=== PATIENT | female | born 1985 | race Caucasian/White ===

== ENCOUNTER 2016-08-29 20:41 | Emergency (ER) | payer OTHER ==
[2016-08-29] MEDS ORDERED: Amoxicillin/Clavulanate TAB* 875 MG PO ONE (20:59)
--- NOTE | 2016-08-29 21:10 | UC ---
Throat Pain/Nasal Darnell HPI - HPI Summary HPI Summary: Patient has had two weeks of right sided sinus pressure, increased to left side and now has upper jaw pain, and post nasal drip - History of Current Complaint Chief Complaint: UCGeneralIllness Stated Complaint: SINUS SORE THROAT Time Seen by Provider: 08/29/16 20:55 Hx Obtained From: Patient Hx Last Menstrual Period: 08/28/16 Onset/Duration: Sudden Onset, Lasting Weeks Severity: Worse Since: - last week Pain Intensity: 7 Pain Scale Used: 0-10 Numeric Cough: None Associated Signs & Symptoms: Positive: Sinus Discomfort, Nasal Discharge - Epiglottits Risk Factors Epiglottis Risk Factors: Negative - Allergies/Home Medications Allergies/Adverse Reactions: Allergies Allergy/AdvReac Type Severity Reaction Status Date / Time Cefprozil [From Cefzil] Allergy Mild Hives Verified 08/29/16 20:50 Hepatitis B Virus Vaccine Allergy Mild Hives Verified 08/29/16 20:50 Home Medications: Home Medications Bcp 1 tab PO BEDTIME 08/29/16 [History Confirmed 08/29/16] Dextromethorphan-Guaifenesin [Mucinex Fast-Max Dm Max 20-400 mg/20Ml] 1 liq PO SEE INSTRUCTIONS PRN 08/29/16 [History Confirmed 08/29/16] PMH/Surg Hx/FS Hx/Imm Hx Previously Healthy: Yes Neurological History Of: Reports: Migraine - ONE EVERY 4 MONTH - Surgical History Surgical History: Yes Surgery Procedure, Year, and Place: 2012 C SECTION, [facility]. 2001 TONSILLECTOMY AND ADENOIDECTOMY, [facility]. 08/27/16 - Family History Known Family History: Positive: Hypertension - Social History Alcohol Use: Rare Substance Use Type: None Smoking Status (MU): Never Smoked Tobacco Have You Smoked in the Last Year: No - Immunization History Most Recent Influenza Vaccination: declined Most Recent Tetanus Shot: unk Most Recent Pneumonia Vaccination: none Review of Systems Constitutional: Fatigue Skin: Negative Eyes: Negative ENT: Sore Throat, Ear Ache, Nasal Discharge Respiratory: Negative Cardiovascular: Negative Gastrointestinal: Negative Genitourinary: Negative Motor: Negative Neurovascular: Negative Neurological: Headache Psychological: Negative All Other Systems Reviewed And Are Negative: Yes Physical Exam Triage Information Reviewed: Yes Appearance: Well-Nourished, Ill-Appearing, Pain Distress Vital Signs: Initial Vital Signs Temp 97.6 F 08/29/16 20:45 Pulse 97 08/29/16 20:45 Resp 16 08/29/16 20:45 BP 138/84 08/29/16 20:45 Pulse Ox 99 08/29/16 20:45 Vital Signs Reviewed: Yes Eye Exam: Normal Eyes: Positive: Conjunctiva Clear ENT Exam: Normal ENT: Positive: Pharyngeal erythema - with posterior exudate, Nasal congestion, Nasal drainage, TM bulging, TM red Dental Exam: Normal Neck exam: Normal Neck: Positive: Supple, Nontender, No Lymphadenopathy Respiratory Exam: Normal Respiratory: Positive: Chest non-tender, Lungs clear, Normal breath sounds Cardiovascular Exam: Normal Cardiovascular: Positive: RRR, No Murmur, Pulses Normal Abdominal Exam: Normal Abdomen Description: Positive: Nontender, No Organomegaly, Soft Bowel Sounds: Positive: Present Musculoskeletal Exam: Normal Musculoskeletal: Positive: Strength Intact, ROM Intact, No Edema Neurological Exam: Normal Neurological: Positive: Alert, Muscle Tone Normal Psychological Exam: Normal Skin Exam: Normal Throat Pain/Nasal Course/Dx - Course Course Of Treatment: hx obtained, exam performed, meds dispensed and prescribed for sinusitis - Differential Dx/Diagnosis Differential Diagnosis/HQI/PQRI: Influenza, Laryngitis, Otitis Media, Pharyngitis, Sinusitis, Tonsillitis, URI Provider Diagnoses: sinusitis Discharge - Discharge Plan Condition: Stable Disposition: HOME Prescriptions: Amoxicillin/Clavulanate TAB* [Augmentin TAB 875*] 875 mg PO BID #19 tab predniSONE TAB* [Deltasone TAB*] 40 mg PO DAILY #10 tab Patient Education Materials: Sinusitis (ED) Referrals: Tania Sutton NP [Primary Care Provider] - Additional Instructions: Take the medication as directed, Increase your fluid intake and get plenty of rest. tylenol or ibuprofen for pain and fever. Heat to the area may also relieve pain, Steam showers as well to promote clearing of the sinuses.
[2016-08-29 21:15] VITALS: BP 138/84
== END 2016-08-29 21:23 | disposition home or self-care (01) ==
LOC: UCCORT 20:41
DX: J32.9 Chronic sinusitis, unspecified (principal); Z88.1 Allergy status to other antibiotic agents; Z88.7 Allergy status to serum and vaccine
CPT/HCPCS: 99212; A9270-GY; G0463

== ENCOUNTER 2016-10-16 17:39 | Emergency (ER) | payer OTHER ==
[2016-10-16 17:57] VITALS: BP 131/82
[2016-10-16] MEDS ORDERED: Ibuprofen TAB* 600 MG PO ONE (17:59)
--- NOTE | 2016-10-16 18:16 | ED ---
HPI Febrile Illness - HPI Summary HPI Summary: 1 1/2 weeks of URI sx. Started with sinusitis Sx, then spread into chest. Positive sinus pressure/rhinorrhea. Dry cough. Positive sore throat. Chest hurts with cough. Has heard wheezing. 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: - at noon - Allergy/Home Medications Allergies/Adverse Reactions: Allergies Allergy/AdvReac Type Severity Reaction Status Date / Time Cefprozil [From Cefzil] Allergy Mild Hives Verified 10/16/16 17:49 Hepatitis B Virus Vaccine Allergy Mild Hives Verified 10/16/16 17:49 Home Medications: Home Medications Control Med 1 tab DAILY 10/16/16 [History] PMH/Surg Hx/FS Hx/Imm Hx Previously Healthy: Yes Sensory History: Denies: Hx Contacts or Glasses, Hx Hearing Aid Opthamlomology History: Denies: Hx Contacts or Glasses Neurological History: Reports: Hx Migraine - ONE EVERY 4 MONTH - Surgical History Surgery Procedure, Year, and Place: 2012 C SECTION, [facility]. 2001 [address]OMY AND [address]EN[address]Y, [facility] [place] Hx Anesthesia Reactions: No Infectious Disease History: No Infectious Disease History: Denies: Traveled Outside the [place] in Last 30 Days - Family History Known Family History: Positive: Hypertension - Social History Alcohol Use: Rare Substance Use Type: Reports: None Smoking Status (MU): Never Smoked Tobacco Have You Smoked in the Last Year: No Review of Systems Positive: Fever, Chills Eyes: Negative Positive: Nasal Discharge Positive: Chest Pain - with cough Positive: Shortness Of Breath - wheezing Gastrointestinal: Negative Genitourinary: Negative Musculoskeletal: Negative Skin: Negative Neurological: Negative Psychological: Normal All Other Systems Reviewed And Are Negative: Yes Physical Exam Triage Information Reviewed: Yes Vital Signs On Initial Exam: Initial Vitals Temp Pulse Resp BP Pulse Ox 101 F 136 18 131/82 99 10/16/16 17:50 10/16/16 17:50 10/16/16 17:50 10/16/16 17:50 10/16/16 17:50 Vital Signs Reviewed: Yes Appearance: Positive: No Pain Distress, Well-Nourished, Ill-Appearing - Mildly/ moderately ill appearing Skin: Positive: Warm, Skin Color Reflects Adequate Perfusion Eyes: Positive: Normal ENT: Positive: Pharynx normal, Nasal congestion, TMs normal. Negative: TM bulging, Tonsillar swelling, Tonsillar exudate Neck: Positive: Supple Respiratory/Lung Sounds: Positive: Wheezes Cardiovascular: Positive: Tachycardia Musculoskeletal: Positive: Normal Neurological: Positive: Normal Psychiatric: Positive: Normal Diagnostics - Vital Signs Vital Signs Temp Pulse Resp BP Pulse Ox 10/16/16 17:50 101 F 136 18 131/82 99 - Laboratory Lab Statement: Any lab studies that have been ordered have been reviewed, and results considered in the medical decision making process. Course/Dx - Course Assessment/Plan: Patient given ibuprofen in clinic. Rx augmentin/prednisone/ tylenol #3/albuterol. Discussed treatment with patient. She will f/u with pmd; go to ED if worse or not improved. Discharge home stable. - Diagnoses Provider Diagnoses: Sinusitis, Fever, Bronchitis, Bronchospasm Discharge - Discharge Plan Condition: Stable Disposition: HOME Prescriptions: Acetaminop/Codeine 30 MG TAB* [Tylenol/Codeine 30 MG TAB*] 1 tab PO Q6H PRN #20 tab MDD 4 PRN Reason: Cough Albuterol HFA INHALER* [Ventolin HFA Inhaler*] 2 puff INH Q4H PRN #1 mdi PRN Reason: Wheezing Amoxicillin/Clavulanate TAB* [Augmentin TAB 875*] 875 mg PO BID #20 tab predniSONE TAB* [Deltasone TAB*] 40 mg PO DAILY #8 tab Patient Education Materials: Fever in Adults (ED), Acute Bronchitis (ED), How to Use a Nebulizer (ED), Wheezing (ED), Sinusitis (ED) Additional Instructions: FOLLOW UP WITH YOUR DOCTOR. GO TO THE EMERGENCY DEPARTMENT FOR ANY WORSENING OF YOUR CONDITION; SHORTNESS OF BREATH, YOU FEEL ILL, YOU DO NOT IMPROVE OR QUESTIONS OR CONCERNS.
== END 2016-10-16 18:45 | disposition home or self-care (01) ==
LOC: UCCORT 17:39
DX: J32.9 Chronic sinusitis, unspecified (principal); J20.9 Acute bronchitis, unspecified; R50.9 Fever, unspecified; G43.909 Migraine, unspecified, not intractable, without status migrainosus; Z88.1 Allergy status to other antibiotic agents
CPT/HCPCS: 99212; A9270-GY; G0463

== ENCOUNTER 2018-02-05 09:53 | Emergency (ER) | payer OTHER ==
[2018-02-05] MEDS ORDERED: EPINEPHrine AMP 1 MG/ML IM ONE ×2 (10:16→10:41)
[2018-02-05] MEDS ORDERED: diPHENhydraMINE IV* 50 MG/ML 1 ml VIAL (BENADRYL) IM ONE (10:18)
[2018-02-05] MEDS ORDERED: methylPREDNISolone 125 MG* 2 ML VIAL IM ONE (10:18)
[2018-02-05] MEDS ORDERED: LoraTADine TAB(NF) 10 MG TAB (AUTOSUB to CETIRIZINE) PO ONE (10:24)
--- NOTE | 2018-02-05 10:27 | UC ---
Allergic Reaction HPI - HPI Summary HPI Summary: Pt presents with facial swelling, itching, and angio edema 5- 10 minute onset after being bit or stung by unknown insect. - History of Current Complaint Chief Complaint: UCAllergicReaction Stated Complaint: ALLERGIC REACTION Time Seen by Provider: 02/05/18 10:07 Hx Obtained From: Patient Hx Last Menstrual Period: 01/12/18 ?: No Onset/Duration: Sudden Onset Severity Initially: Moderate Severity Currently: Severe Pain Intensity: 0 Location: Diffuse Character: Swelling, Pruritus, Hives Alleviating Factor(s): Antihistamines - given at urgent care, Epinephrine - given at Urgent care Associated Signs And Symptoms: Positive: Difficulty Breathing - Related Hx Possible Reaction To: Insect - Allergies/Home Medications Allergies/Adverse Reactions: Allergies Allergy/AdvReac Type Severity Reaction Status Date / Time cefprozil [From Cefzil] Allergy Intermediate Hives Verified 02/05/18 10:19 hepatitis B virus vaccine Allergy Intermediate Hives Verified 02/05/18 10:19 bee venom protein (honey bee) Allergy facial Verified 02/05/18 10:19 swelling, tingling, redness PMH/Surg Hx/FS Hx/Imm Hx Previously Healthy: Yes - Surgical History Surgical History: Yes Surgery Procedure, Year, and Place: 2012 C SECTION, [place]. 2001 TONSILLECTOMY AND ADENOIDECTOMY, [facility] - Family History Known Family History: Positive: Hypertension - Social History Occupation: Employed Full-time Lives: With Family Alcohol Use: Rare Substance Use Type: None Smoking Status (MU): Never Smoked Tobacco Have You Smoked in the Last Year: No - Immunization History Most Recent Influenza Vaccination: None Most Recent Tetanus Shot: unk Most Recent Pneumonia Vaccination: none Review of Systems Constitutional: Negative Skin: Rash Eyes: Other - angioedema ENT: Other - lip swelling/angioedema Respiratory: Shortness Of Breath Cardiovascular: Other - chest heaviness/tightness Genitourinary: Negative Motor: Negative Neurovascular: Negative Musculoskeletal: Negative Neurological: Headache Psychological: Negative Is Patient Immunocompromised?: No All Other Systems Reviewed And Are Negative: Yes Physical Exam Triage Information Reviewed: Yes Appearance: Ill-Appearing Vital Signs: Initial Vital Signs Temp 98.1 F 02/05/18 10:09 Pulse 132 02/05/18 10:09 Resp 18 02/05/18 10:09 BP 148/100 02/05/18 10:09 Pulse Ox 98 08/03/18 10:09 Vital Signs Reviewed: Yes Eyes: Positive: Other: - angiedema ENT: Positive: Other - angioedema Dental Exam: Normal Neck exam: Normal Respiratory Exam: Other Respiratory: Positive: Decreased breath sounds Cardiovascular: Positive: Tachycardia Musculoskeletal Exam: Normal Neurological Exam: Normal Psychological Exam: Normal Skin Exam: Other - diffuse urticaria Allergic Reaction Course/Dx - Differential Dx/Diagnosis Differential Diagnosis/HQI/PQRI: Anaphylaxis, Angioedema Provider Diagnoses: anaphylaxis Discharge - Sign-Out/Discharge Documenting (check all that apply): Patient Departure - Discharge Plan Condition: Stable Disposition: HOME Prescriptions: EPINEPHrine SYR* [EPINEPHphrine SYR*] 0.5 mg .SEE ORDER ONCE #1 amp Patient Education Materials: Insect Bite or Sting (ED), Anaphylaxis (ED) Referrals: Tania Sutton RESIDENT CARE MANAGER RN [Primary Care Provider] - As Soon As Possible Additional Instructions: Please call 911 if any worsening of condition. Please repeat oral antihistamine benadryl today at 3 pm and long acting antihistamine such as claritin, Qi or Zyrtec at 10:30 pm. You may also take pepcid or zantac once today as well. - Billing Disposition and Condition Condition: STABLE Disposition: Home
[2018-02-05 11:18] VITALS: BP 156/66
[2018-02-05] MEDS ORDERED: EPINEPHRINE 1 MG/ML 1 ML VIAL ONE (11:53)
== END 2018-02-05 11:15 | disposition home or self-care (01) ==
LOC: UCCORT 09:53
DX: T63.91XA Toxic effect of contact with unspecified venomous animal, accidental (unintentional), initial encounter (principal); T78.2XXA Anaphylactic shock, unspecified, initial encounter; T63.481A Toxic effect of venom of other arthropod, accidental (unintentional), initial encounter; R22.0 Localized swelling, mass and lump, head; L29.9 Pruritus, unspecified; T78.3XXA Angioneurotic edema, initial encounter; Y92.9 Unspecified place or not applicable; Z88.1 Allergy status to other antibiotic agents
CPT/HCPCS: 96372; 99212; A9270-GY; G0463; J0171; J1200; J2930

== ENCOUNTER 2019-03-31 07:48 | Inpatient (IN) | payer OTHER ==
[2019-03-29 15:50] LABS: ABS Eosinophils 0.1 10^3/ul (0-0.6); ABS Lymphocytes 1.9 10^3/ul (1.0-4.8); ABS Monocytes 0.6 10^3/ul (0-0.8); ABS Neutrophils 6.6 10^3/ul (1.5-7.7); Eosinophil % 0.8 %; Hematocrit 32 % (35-47); Hemoglobin 11.1 g/dL (12.0-16.0); Lymphocyte % 20.2 %; Mean Corpuscular HGB Conc 34 g/dL (31-36); Mean Corpuscular Hemoglobin 29 pg (27-31); Mean Corpuscular Volume 84 fL (80-97); Mean Platelet Volume 8.7 fL (7.4-10.4); Platelet Count 237 10^3/uL (150-450); Red Blood Count 3.83 10^6 /uL (3.70-4.87); Red Cell Distribution Width 15 % (10-15); White Blood Count 9.2 10^3/uL (3.5-10.8)
[~2019-03-31 07:48] MED LIST: GENTAMICIN ADULT IVPB SCH; NS 0.9% IVPB SCH; Sodium Citrate/Citric Acid* 15 ML UDC PO SCH
--- OUTSIDE RECORDS SUMMARY | 2019-03-31 07:53 | XMS REPORT | Continuity of Care Document ---
:1985 External Reference #:[id number] Author Name Margaret Hinton MD Address [address] [place] [address] Care Team Providers Name Role Phone Blanca Wilcox Care Team Information Supervisor [employer] [phone] Problems Description No Active Problems Social History Type Date Description Comments Sex Unknown Tobacco Use Start: Unknown Never Smoked Cigarettes Smoking Status Reviewed: 03/11/19 Never Smoked Cigarettes ETOH Use Denies alcohol use Recreational Drug Use Denies Drug Use Tobacco Use Start: Unknown Patient has never smoked Seat Belt/Car Seat Always uses seat belt Allergies, Adverse Reactions, Alerts Active Allergies Reaction Severity Comments Date Cefzil hives 07/01/2012 Hepatitis B Virus Vaccine hives 07/01/2012 Bee Sting Severe 09/08/2018 Medications Active Medications SIG Qnty Indications Ordering Provider Date PNV 1 po qd Unknown Medications Administered in Office Medication SIG Qnty Indications Ordering Provider Date PT SCRN Tbco Id as Non User Margaret Hinton MD 03/11/2019 Injection Immunizations CPT Code Status Date Vaccine Lot # [id number] Given 02/01/2019 Tetnus, Diptheria Toxoids And Acellular Pertussis, [id number] PT > 7Yrs Old [address] Given 07/01/2012 Influenza Virus Vaccine 3Years Or Older Vital Signs Date Vital Result Comment 03/11/2019 3:07pm BP Systolic 132 mmHg BP Diastolic 78 mmHg Body Temperature 97.7 F Heart Rate 78 /min Respiratory Rate 16 /min Height 63.5 inches 5'3.50" Weight 206.00 lb BMI (Body Mass Index) 35.9 kg/m2 4 Parity 2 06/26/2016 11:36am BP Systolic 142 mmHg BP Diastolic 86 mmHg Height 63.5 inches 5'3.50" Weight 197.00 lb BMI (Body Mass Index) 34.3 kg/m2 Last Menstrual Period [id number] 3 Parity 2 Results Test Date Facility Test Result H/L Range Note CBC Auto 03/29/2019 [facility] White Blood 9.2 10^3/uL Normal 3.5-10.8 [place] [address] Count [phone] Red Blood Count 3.83 10^6/uL Normal 3.70-4.87 Hemoglobin 11.1 g/dL Low 12.0-16.0 Hematocrit 32 % Low 35-47 Mean Corpuscular Volume 84 fL Normal 80-97 Mean Corpuscular Hemoglobin 29 pg Normal 27-31 Mean Corpuscular HGB Conc 34 g/dL Normal 31-36 Red Cell Distribution Width 15 % Normal 10-15 Platelet Count 237 10^3/uL Normal 150-450 Mean Platelet Volume 8.7 fL Normal 7.4-10.4 Abs Neutrophils 6.6 10^3/uL Normal 1.5-7.7 Abs Lymphocytes 1.9 10^3/uL Normal 1.0-4.8 Abs Monocytes 0.6 10^3/uL Normal 0-0.8 Abs Eosinophils 0.1 10^3/uL Normal 0-0.6 Abs Basophils 0.0 10^3/uL Normal 0-0.2 Abs Nucleated RBC 0.0 10^3/uL Granulocyte % 71.7 % Lymphocyte % 20.2 % Monocyte % 6.8 % Eosinophil % 0.8 % Basophil % 0.5 % Nucleated Red Blood Cells % 0.0 Type And Screen 03/29/2019 [facility] Patient [place] [address] [phone] Antibody Screen NEGATIVE Laboratory test 03/16/2019 [facility] Genital For SEE RESULT 1 [place] [address] GRP B Strep BELOW [phone] Only Laboratory test 01/11/2019 [facility] Glucose 1 HR 111 mg/dL Normal 70-16 2 [place] [address] Post Prandial 0 [phone] CBC With No Diff 01/11/2019 [facility] White Blood 11.7 High 3.5-1 [place] [address] Count 10^3/uL 0.8 [phone] Red Blood Count 3.69 10^6/uL Low 3.70-4.87 Hemoglobin 10.7 g/dL Low 12.0-16.0 Hematocrit 33 % Low 35-47 Mean Corpuscular Volume 88 fL Normal 80-97 Mean Corpuscular Hemoglobin 29 pg Normal 27-31 Mean Corpuscular HGB Conc 33 g/dL Normal 31-36 Red Cell Distribution Width 15 % Normal 10-15 Platelet Count 232 10^3/uL Normal 150-450 Mean Platelet Volume 8.2 fL Normal 7.4-10.4 Serum Integrated Screen Part 2 CT 11/03/2018 [facility] Interpretation SEE BELOW 3 Risk For Ontd <1:5000 Age Risk Down Syndrome 1:570 RAZA Down Syndrome Risk <1:5000 <1:270 RAZA Trisomy 18 Risk <1:5000 <1:100 Calculated Gestational Age 17.9 Afp,Serum 36.8 ng/mL Afp Mom 1.05 4 HCG,Serum 15.2 IU/mL HCG Mom 0.73 Estriol,Free 0.85 ng/mL Estriol Mom 0.78 Inhibin A,Dimeric 101 pg/mL Inhibin A Mom 0.69 Ricarda-A 582.3 ng/mL 5 Ricarda-A Mom 1.27 6 Referring Physician Name NOT GIVEN Referring Physician Phone NOT GIVEN Referring Physician Npi NOT GIVEN Specimen # From Part 1 NOT GIVEN Date Of 1985 Collection Date 11/03/2018 Maternal Weight 197 lbs Est'd Date Of Delivery 04/07/2019 Mother's Ethnic Origin WHITE Insulin Depend Diabetic N Repeat Specimen N Number Of Fetuses 1 HX Of Neural Tube Defects N Cigarette Smoker N 7 Urine Drug 11/03/2018 [facility] Urine Amphetamine Negative ng/ mL 8 Comp 20 [place] [address] [phone] Urine Barbiturates Negative ng/mL 9 Urine Benzodiazepines Negative ng/mL 10 Urine Cocaine Negative ng/mL 11 Urine Phencyclidine Negative ng/mL Cutoff: 25 Urine Tetrahydrocannabinol Negative ng/mL Cutoff: 50 12 Creatinine, Urine 188.9 mg/dL Specific [place] 1.018 pH 6.0 Oxidants Negative 13 Adulterants Comment Normal Codeine, Ur Not Detected ng/mL Cutoff: 25 14 Sodykme-8-icgo-glucuronide, Ur Not Detected ng/mL 15 Morphine, Ur Not Detected ng/mL Cutoff: 25 16 Wworigme-8-koaj-glucuronide, U Not Detected ng/mL 17 6-monoacetylmorphine, Ur Not Detected ng/mL Cutoff: 25 18 Hydrocodone, Ur Not Detected ng/mL Cutoff: 25 19 Norhydrocodone, Ur Not Detected ng/mL Cutoff: 25 20 Dihydrocodeine, Ur Not Detected ng/mL Cutoff: 25 21 Hydromorphone, Ur Not Detected ng/mL Cutoff: 25 22 Ecqfgryhylywn7ohbaezsnwqufhpz Not Detected ng/mL 23 Oxycodone, Ur Not Detected ng/mL Cutoff: 25 24 Noroxycodone, Ur Not Detected ng/mL Cutoff: 25 25 Oxymorphone, Ur Not Detected ng/mL Cutoff: 25 26 Jtwtvdgdses-1-wwla-glucuronide Not Detected ng/mL 27 Noroxymorphone, Ur Not Detected ng/mL Cutoff: 25 28 Fentanyl, Ur Not Detected ng/mL Cutoff: 2 29 Norfentanyl, Ur Not Detected ng/mL Cutoff: 2 30 Meperidine, Ur Not Detected ng/mL Cutoff: 25 31 Normeperidine, Ur Not Detected ng/mL Cutoff: 25 32 Naloxone, Ur Not Detected ng/mL Cutoff: 25 33 Fjtaoziy-3-amxw-glucuronide, U Not Detected ng/mL 34 Methadone, Ur Not Detected ng/mL Cutoff: 25 35 Eddp, Ur Not Detected ng/mL Cutoff: 25 36 Propoxyphene, Ur Not Detected ng/mL Cutoff: 25 37 Norpropoxyphene, Ur Not Detected ng/mL Cutoff: 25 38 Tramadol, Ur Not Detected ng/mL Cutoff: 25 39 O-desmethyltramadol, Ur Not Detected ng/mL Cutoff: 25 40 Tapentadol, Ur Not Detected ng/mL Cutoff: 25 41 N-desmethyltapentadol, Ur Not Detected ng/mL Cutoff: 50 42 Yqtxrxsfdo-bvkb-udnatzdzvne, U Not Detected ng/mL 43 Buprenorphine, Ur Not Detected ng/mL Cutoff: 5 44 Norbuprenorphine, Ur Not Detected ng/mL Cutoff: 5 45 Norbuprenorphine glucuronide Not Detected ng/mL Cutoff: 20 46 Opioid Interpretation See Comment 47 GC/Chlamydia Dna 11/03/2018 [facility] [place]lamydia [place] [address] trachomatis Rna [phone] Neisseria gonorrhoeae (GC) Rna Negative Negative Urine Culture And 10/12/2018 [facility] Urine Culture SEE RESULT [address] [place] [address] BELOW [phone] 1 SEE RESULT BELOW Name: SAULJENNIFER ONOFRE : [address]: Gene Lora DO Acct: [id number] Unit: [id number] AGE: 34 Location: [facility] Re03/16/19 SEX: F Status: REG REF SPEC: [id number] AKBAR: 03/16/19-[address]: Gene Lora DO REQ: [id number] RECD: 03/16/19 STATUS: COMP _ SOURCE: CER/VAG/RE SPDESC: ORDERED: Grp B Strp Scrn COMMENTS: [id number] Copy Result to: BLANCA WILCOX ([id number]) QUERIES: Is Patient Penicillin Allergic? N Is patient penicillin allergic and/or sensitivities needed? N Provider Requisition # [id number] Procedure Result Reported Site Group B Strep Culture Screen Final 03/18/19- 954 ML Group B Strep Screen Negative * ML - Main Lab . END OF REPORT DEPARTMENT OF PATHOLOGY, [address] [place] [address] Aldo Lombardo M.D. Director [facility] # [id number] 2 [id number] SCREEN NEGATIVE FOR OPEN NTD, DOWN SYNDROME AND TRISOMY 18. 4 Reference Range: <2.50 IDD <1.90 TWINS <4.00 TWINS IDD <3.50 TRIPLETS <4.50 5 This test was performed using a kit that has not been cleared or approved by the FDA. The analytical performance characteristics of this test have been determined by [employer] [facility]. This test should not be used for diagnosis without confirmation by other medically established means. 6 The Serum Integrated Screen combines RICARDA-A in the first trimester with AFP, unconjugated estriol, intact hCG and Inhibin A in the second trimester. This provides a useful screening test for detection of open neural tube defects, Down syndrome and Trisomy 18. It should be noted that normal results can never guarantee the of a normal baby and that 2 to 3 percent of newborns have some type of physical or mental defect, many of which are undetectable through any known diagnostic technique. Interpretation reviewed by: Berto Ray, Ph.D., [facility]. 7 This is a screening test, not a diagnostic test. This risk assessment is based on demographic data provided by the ordering physician. Please notify the laboratory promptly if any data are incorrect. It has been observed that patients who smoke cigarettes during may have a slightly increased risk of having a false positive RAZA screen for Down Syndrome or trisomy 18. If you have questions concerning this report: For clinical consultation, call ; For technical questions, call ext [phone]; For recalculations, fax to . For additional information, please refer to [email or web address] (This link is being provided for informational/educational purposes only.) 8 REFERENCE VALUE Cutoff: 500 9 REFERENCE VALUE Cutoff: 200 10 REFERENCE VALUE Cutoff: 100 11 REFERENCE VALUE Cutoff: 150 12 ADDITIONAL INFORMATION This report is intended for use in clinical monitoring or management of patients. It is not intended for use in employment-related testing. 13 REFERENCE VALUE Cutoff: 200 mg/L 14 Tylenol 3 15 Metabolite of codeine REFERENCE VALUE Cutoff: 100 16 Chen Bob, MS Contin; Also a minor metabolite (10%) of codeine and can be seen in low concentrations (<2,000 ng/mL) with poppy seed ingestion. 17 Metabolite of morphine REFERENCE VALUE Cutoff: 100 18 Metabolite of heroin 19 Lortab, Warren, Vicodin; Also a very minor metabolite of codeine and impurity (<1%) of oxycodone. 20 Metabolite of hydrocodone 21 Metabolite of hydrocodone 22 Dilaudid, Exalgo; Also a metabolite of hydrocodone and a minor (<5%) metabolite of morphine. 23 Metabolite of hydromorphone REFERENCE VALUE Cutoff: 100 24 Endocet, Percocet, Oxycontin 25 Metabolite of oxycodone 26 Numorphan, Opana; Also a metabolite of oxycodone. 27 Metabolite of oxymorphone REFERENCE VALUE Cutoff: 100 28 Metabolite of oxymorphone 29 Actiq, Duragesic, Fentora 30 Metabolite of fentanyl 31 Demerol 32 Metabolite of meperidine 33 Narcan 34 Metabolite of naloxone REFERENCE VALUE Cutoff: 100 35 Dolophine 36 Metabolite of methadone 37 Darvon, Darvocet 38 Metabolite of propoxyphene 39 Tradol, Ultram, Ultracet 40 Metabolite of tramadol 41 Nucynta 42 Metabolite of tapentadol 43 Metabolite of tapentadol REFERENCE VALUE Cutoff: 100 44 Buprenex, Suboxone 45 Metabolite of buprenorphine 46 Metabolite of buprenorphine 47 No opioids were detected. The absence of expected drug(s) and/or drug metabolite(s) may indicate non-compliance, altered pharmacokinetics, inappropriate timing of specimen collection relative to drug administration, diluted/adulterated urine, or limitations of testing. ADDITIONAL INFORMATION This test was developed and its performance characteristics determined by [facility] in a manner consistent with CLIA requirements. This test has not been cleared or approved by the U.S. Food and Drug Administration. Test Performed by: [facility] [address] [place] [id number] SEE RESULT BELOW Name: JENNIFER GILLESPIE : [address]: Kathie Alvarze MD Acct: [id number] Unit: [id number] AGE: 33 Location: [facility] Re10/12/18 SEX: F Status: REG REF SPEC: [id number] AKBAR: 10/12/18-[address] [facility] [address]: Kathie Alvarez MD REQ: [id number] RECD: 10/13/18 STATUS: COMP _ SOURCE: URINE [facility]: ORDERED: Urine Culture COMMENTS: [id number] Urine Source: Random Procedure Result Reported Site Urine Culture Final 10/14/18- 1520 ML No Growth (<1,000 CFU/mL) * ML - Main Lab . END OF REPORT DEPARTMENT OF PATHOLOGY, [address] [place] [address] Aldo Lombardo M.D. Director [facility] # [id number] Procedures Date Code Description Status 11/18/2018 84589 Echography Uterus Complete Completed Medical Devices Description No Information Available Encounters Type Date Location Provider Dx Diagnosis Office Visit 03/11/2019 [facility] Margaret Hinton, O34.211 Matern care for low 3:00p transverse scar from prev del Z01.818 Encounter for other preprocedural examination Assessments Date Code Description Provider 03/24/2019 O34.211 Maternal care for low transverse scar from Leonardo Jenkins MD previous delivery 03/16/2019 O34.211 Maternal care for low transverse scar from Gene Lora JR, DO previous delivery 03/11/2019 O34.211 Maternal care for low transverse scar from Margaret Hinton MD previous delivery 03/11/2019 Z01.818 Encounter for other preprocedural Margaret Hinton MD examination 03/02/2019 O34.211 Maternal care for low transverse scar from Leonardo Jenkins MD previous delivery 02/16/2019 Z34.83 Encounter for supervision of other normal Gene Lora JR , DO , third trimester 02/01/2019 Z23 Encounter for immunization Leonardo Jenkins MD 02/01/2019 O34.211 Matern care for low transverse scar from Leonardo Jenkins MD prev del 01/11/2019 Z36.9 Encounter for screening, Margaret Hinton MD unspecified 01/11/2019 Z34.82 Encounter for suprvsn of normal , Kurtis Metzger M.D. second trimester 01/11/2019 Z36.9 Encounter for screening, Laboratory unspecified 12/22/2018 O34.211 Matern care for low transverse scar from Margaret Hinton MD prev del 11/18/2018 Z36.3 Encounter for screening for Leonardo Jenkins MD malformations 11/18/2018 O34.211 Matern care for low transverse scar from Leonardo Jenkins MD prev del 11/18/2018 Z36.3 Encounter for screening for Ultrasounds malformations 11/03/2018 Z36.9 Encounter for screening, Leonardo Jenkins MD unspecified 11/03/2018 Z36.9 Encounter for screening, Laboratory unspecified 11/03/2018 O34.211 Matern care for low transverse scar from Leonardo Jenkins MD prev del 10/12/2018 O34.211 Matern care for low transverse scar from Kathie Alvarez MD prev del Plan of Treatment Future Appointment(s):03/31/2019 10:00 am - Margaret Hinton MD at [place] [id number] 10:00 am - Kurtis Metzger M.D. at [facility] 11:00 am - Umu Ward CNM at [facility]05/02/2019 11:30 am - Margaret Hinton MD at [facility]03/11/2019 - Margaret Hinton MDO34.211 Maternal care for low transverse scar from previous deliveryComments:Routine care delivered. Pt signed consent for and accepts risk to include but not limited to infection, bleeding, damage to internal organs, pain ,scarring ,need for further surgery, need for blood products. Personally reviewed and signed consent form with patient.Z01.818 Encounter for other preprocedural examinationComments:as above. Functional Status Description No Information Available Mental Status Description No Information Available Referrals Description No Information Available
[2019-03-31] MEDS ORDERED: Clindamycin 900 MG IVPREMIX(* 900 MG/50 ML SDV IV ONE (08:17)
[2019-03-31] MEDS ORDERED: Sodium Citrate/Citric Acid* 15 ML UDC ONE (08:55)
[2019-03-31] MEDS ORDERED: Morphine PF AMP (0.5MG/ML)* 5 MG/10 ML AMP ONE (10:27)
[2019-03-31] MEDS ORDERED: Phenylephrine 40 MCG/ML SYRINGE ONE (11:00)
[2019-03-31] MEDS ORDERED: OXYTOCIN* 10 UNITS/ML 1 ML VIAL ONE ×2 (11:00→11:48)
[2019-03-31] MEDS ORDERED: EPHEDrine (Pressors)* 50 MG/ML VIAL ONE (11:00)
[2019-03-31] MEDS ORDERED: Nalbuphine* 10 MG/ML 1 ML VIAL IV PRN (11:25)
[2019-03-31] MEDS ORDERED: Ondansetron INJ* 2 MG/ML VIAL IV PRN (11:25)
[2019-03-31] MEDS ORDERED: Naloxone* 0.4 MG/ML 1 ML VIAL IV PRN (11:25)
[2019-03-31] MEDS ORDERED: HYDROcodone/ACETAMIN 5-325 MG* 1 TAB PO PRN (11:25)
[2019-03-31] MEDS ORDERED: Dibucaine 1% 28.35 GM TUBE PR PRN (12:01)
[2019-03-31] MEDS ORDERED: Acetaminophen TAB* 325 MG PO PRN (12:01)
[2019-03-31] MEDS ORDERED: Glycerin ADULT SUPP PR PRN (12:01)
[2019-03-31] MEDS ORDERED: Witch Hazel PAD* JAR TOPICAL PRN (12:01)
[2019-03-31] MEDS ORDERED: Lactated Ringers 1000 ML Bag* 1,000 ML IV SCH (13:00)
[2019-03-31] MEDS ORDERED: Oxytocin in LR* 20 UNITS/1,000 ML BAG IVPB SCH (13:00)
[2019-03-31] MEDS: Docusate CAP* 100 MG PO SCH ×2 (14:20→20:52)
[2019-03-31] MEDS: Simethicone TAB* 80 MG TAB.CHEW PO SCH ×3 (16:58→20:52)
[2019-03-31] MEDS: Ketorolac INJ* 30 MG/ML 1 ML VIAL IV PRN (20:52)
--- NOTE | 2019-04-01 03:12 | OP ---
DATE OF OPERATION: 03/31/19 - ROOM #102 DATE OF : [birth year] SURGEON: Margaret Hinton M.D. FILTER BED PLACER: Kurtis Metzger M.D. ANESTHESIOLOGIST: Dr. Reynoso. ANESTHESIA: Spinal anesthetic. PRE-OP DIAGNOSIS: Desires repeat section, 39 weeks intrauterine . POST-OP DIAGNOSIS: Desires repeat section, delivered. OPERATIVE PROCEDURE: Repeat low-transverse section with vacuum extraction of head. ESTIMATED BLOOD LOSS: 500 cc. URINE OUTPUT: 100 cc of clear yellow urine. FLUIDS: 2500 cc of crystalloid. FINDINGS: Revealed a vertex male with Apgars of 9 at 1 minute and 9 at 5 minutes. Body cord x1. No meconium. No nuchal cord. Normal-appearing tubes and ovaries bilaterally. Normal uterine cavity without evidence of retained membranes or placental tissue. Normal-appearing placenta, manually extracted, 3 -vessel cord and intact. Weight was 7 pounds and 12 ounces. COMPLICATIONS: None apparent. DISPOSITION: Stable to recovery room. DESCRIPTION OF PROCEDURE: The patient was placed in dorsal lithotomy position. The abdomen was prepped and draped in a sterile standard fashion. The patent was identified with universal protocol. Anesthesia was tested to appropriate level. Incision was made with scalpel through prior incisional site. This was carried down through the fascia. The fascia was scored in the midline, extended laterally and superiorly with extensive dissection on the left as the patient noted some pain on the left side. The fascia was superiorly and inferiorly. The peritoneum was then entered bluntly. The incision was extended bluntly. The bladder blade was inserted. Lower uterine segment was identified, tented up with an Allis. An incision was made with scalpel. This was carried down through the membranes. Uterine incision was extended laterally and superiorly using bandage scissors. Amniotomy was created through clear fluid. Head was delivered with vacuum assist x1 application. No nuchal cord was noted. Body cord x1. Body was delivered. Cord was allowed to pulse. Cord was clamped greater than a minute post delivery and then cord was cut. The the infant was handed off to waiting drywall hanger. Appropriate cord blood was obtained. The placenta was then manually extracted, noted to be intact with 3-vessel cord. The uterus was exteriorized, wrapped in warm moist laparotomy sponge. Uterine cavity was explored, noted to be free of any membranes or placental tissue. The uterine incision itself was reapproximated in two layers, first layer running locked, second layer running imbricated. Hemostasis was noted. The uterus was returned intraabdominally after visualizing normal tubes and ovaries. Colic gutters were lavaged. Hemostasis was assured. The hysterotomy site was re-visualized and noted to be hemostatic. The peritoneum was then reapproximated using 3-0 Vicryl in a running fashion. Subfascial area was visualized. Hemostasis was assured. The fascia itself was then reapproximated using 0 Vicryl x2 in a running fashion. Subcu was lavaged. Hemostasis was assured. The Camper's fascia was reapproximated using 2-0 Vicryl in an interrupted fashion, as it was greater than 2 cm thickness. The skin was then reapproximated using 4-0 Monocryl in a subcuticular fashion. Mastisol and Steris were applied. All sponge, instrument , and blade counts were correct throughout the case. The patient tolerated the procedure well and went to recovery room in stable condition. [id number]/[facility] #: [id number] [facility]ICAL CENTERJeremy
[2019-04-01] MEDS ORDERED: oxyCODONE/Acetamin 5/325 MG* TAB PO PRN ×2 (03:25)
[2019-04-01] MEDS: Ketorolac INJ* 30 MG/ML 1 ML VIAL IV PRN ×2 (04:04→10:05)
[2019-04-01 05:50] LABS: ABS Eosinophils 0.1 10^3/ul (0-0.6); ABS Lymphocytes 1.5 10^3/ul (1.0-4.8); ABS Monocytes 0.9 10^3/ul (0-0.8); ABS Neutrophils 8.5 10^3/ul (1.5-7.7); Hematocrit 28 % (35-47); Hemoglobin 9.6 g/dL (12.0-16.0); Lymphocyte % 13.8 %; Mean Corpuscular HGB Conc 34 g/dL (31-36); Mean Corpuscular Hemoglobin 29 pg (27-31); Mean Corpuscular Volume 85 fL (80-97); Mean Platelet Volume 7.9 fL (7.4-10.4); Platelet Count 190 10^3/uL (150-450); Red Cell Distribution Width 15 % (10-15)
[2019-04-01] MEDS: Simethicone TAB* 80 MG TAB.CHEW PO SCH ×3 (08:20→22:44)
[2019-04-01] MEDS: Ferrous Gluconate TAB* 324 MG TAB PO SCH ×2 (08:20→22:44)
[2019-04-01] MEDS: Docusate CAP* 100 MG PO SCH ×3 (08:20→22:44)
[2019-04-01] MEDS: Ibuprofen TAB* 600 MG PO PRN ×2 (16:27→22:44)
[2019-04-02] MEDS: Ibuprofen TAB* 600 MG PO PRN ×2 (04:38→10:57)
[2019-04-02 08:05] VITALS: BP 128/88
[2019-04-02] MEDS: Ferrous Gluconate TAB* 324 MG TAB PO SCH (08:56)
[2019-04-02] MEDS: Docusate CAP* 100 MG PO SCH (08:56)
[2019-04-02] MEDS: Simethicone TAB* 80 MG TAB.CHEW PO SCH (08:56)
== END 2019-04-02 11:15 | disposition home or self-care (01) | DRG 540 ==
LOC: MCHOB 07:48
PROVIDERS: ADMIT Obstetrics & Gynecology; ATTEND Obstetrics & Gynecology
PROC: 10D00Z1 Extraction of Products of Conception, Low, Open Approach (ICD-10-PCS; principal; 2019-03-31 10:00)
DX: O34.211 Maternal care for low transverse scar from previous cesarean delivery (principal); O69.89X0 Labor and delivery complicated by other cord complications, not applicable or unspecified; Z3A.39 39 weeks gestation of pregnancy; Z37.0 Single live birth
CPT/HCPCS: 36415; 85025; 86850; 86900; 86901; A9270-GY; J1580; J1885; J2590